=== PATIENT | female | born 1975 | race Caucasian/White ===

== ENCOUNTER 2018-11-10 14:38 | Emergency (ER) | payer MEDICARE, OTHER ==
--- NOTE | 2018-11-10 15:10 | ED PDOC ---
Arrival/HPI - General Historian: Patient - History of Present Illness Narrative History of Present Illness (Text): 11/10/18 14:58 43 y/o female, pmh including chronic back pain, nkda, last tetanus under 2 years ago, c/o syncope at home last night with head injury about 17 hours ago. Pt. stated that she woke up to go to the bathroom to urinate, sat down on the toilet, got up, felt dizzy and syncope on the floor, woke up with laceration to the back of the head, stated that she doesn't recall syncope, no change in vision, no numbness or tingling, no neck/back/extremity pain, no rash, no numbness or tingling, no other medical or psychological complaints. Past Medical History - Provider Review Nursing Documentation Reviewed: Yes Family/Social History - Physician Review Nursing Documentation Reviewed: Yes Family/Social History: Unknown Family HX Allergies/Home Meds Allergies/Adverse Reactions: Allergies No Known Allergies Allergy (Verified 11/10/18 15:45) Home Medications: Home Meds Medication Instructions Recorded Confirmed Cyclobenzaprine [Flexeril] 10 mg PO HS 11/10/18 11/10/18 Fluoxetine HCl [Prozac] 40 mg PO DAILY 11/10/18 11/10/18 Hydrocodone/Acetaminophen [Vicodin 1 tab PO BID PRN 11/10/18 11/10/18 5 mg-300 mg] Meloxicam [Mobic] 7.5 mg PO BID 11/10/18 11/10/18 Nortriptyline [Pamelor] 10 mg PO HS 11/10/18 11/10/18 Omeprazole 40 mg PO DAILY 11/10/18 11/10/18 Prazosin HCL [Minipress] 2 mg PO DAILY 11/10/18 11/10/18 Review of Systems - Review of Systems Constitutional: absent: Fatigue, Fevers Eyes: absent: Vision Changes ENT: absent: Hearing Changes Respiratory: absent: SOB, Cough Cardiovascular: absent: Chest Pain Gastrointestinal: absent: Abdominal Pain, Nausea, Vomiting Skin: Laceration. absent: Rash, Pruritis, Skin Lesions, Abscess, Ulcer, Cellulitis Neurological: Headache. absent: Dizziness Psychiatric: absent: Anxiety, Depression, Suicidal Ideation Physical Exam - Systems Exam Head: Present: Laceration (old healing wound posterior occipital laceration approx. 1cm with hematoma noted. ), Other (no facial swelling or tenderness). No: Abrasion Pupils: Present: PERRL Extroacular Muscles: Present: EOMI Conjunctiva: Present: Normal Ears: Present: NORMAL TM, Normal Canal. No: Erythema Mouth: Present: Moist Mucous Membranes Nose (Internal): Present: Normal Inspection, No Active Bleeding. No: Rhinorrhea Neck: Present: Normal Range of Motion Respiratory/Chest: Present: Clear to Auscultation, Good Air Exchange. No: Respiratory Distress, Accessory Muscle Use Cardiovascular: Present: Regular Rate and Rhythm, Normal S1, S2. No: Murmurs Abdomen: No: Tenderness, Distention, Peritoneal Signs, Rebound, Guarding Back: Present: Normal Inspection. No: CVA Tenderness, Midline Tenderness, Paraspinal Tenderness Upper Extremity: Present: Normal Inspection, Normal ROM, Neurovascularly Intact. No: Cyanosis, Edema, Deformity Lower Extremity: Present: Normal Inspection, Normal ROM, Capillary Refill < 2 s. No: Edema, Deformity Neurological: Present: GCS=15, CN II-XII Intact, Speech Normal, Motor Func Grossly Intact, Gait Normal, Memory Normal Skin: Present: Warm, Dry, Normal Color. No: Rashes Psychiatric: Present: Alert, Oriented x 3, Normal Insight, Normal Concentration Medical Decision Making ED Course and Treatment: 11/10/18 15:11 Vasovagal vs. ICH vs. hypotension vs. Cardiac arrythmia vs. UTI vs. Dehydration -Labs -Ekg -CXR -CT head -IVF/percocet -Observe and reassess 11/10/18 17:25 -Urine HCG is negative. -EKG: Sinus Bradycardia @ 57 BPM with sinus Arrythmia, no ST elevation or depression, no T wave inversion. -CT Head No acute intracranial pathology identified. -Chest xray ER wet read: no active disease -Labs show no acute findings -Trop is negative -CPK within normal limit -UA show no UTI -UDS show +cannabinoid -Orthostatic v/s within normal limit -I can not definitely explain the cause of her syncope, would recommend her to be admitted. 11/10/18 17:50 -Pt. refused to be admitted. I advised the patient to get up the bed slowly. -AMA ER The patient refuses to stay in the Emergency Room (ER) to continue the care and wishes to leave the emergency department against my medical advice. Patient was told that staying in the ER is necessary and a full explanation of the reasons why was given, and understood by the patient with alert and oriented x4. The risk of leaving were explained in laymans term and including but not limited to intracranial hemorrage, stroke, cardiac arrythmia, unknown cardiopulmonary and/or neurology disease, sepsis, , disability, pain, worsening of condition, permanent disability and from an undiagnosed or untreated condition. The patient accepts these risks, and is in my judgment is competent and capable of understanding the clinical situation and explanation of the risk of leaving. The patient is able to verbally repeated me back the above explained risks and benefits back to me, and verbally expressed understanding. Patient was given the opportunity to ask questions and change mind. The patient was instructed regarding the best care for the present symptoms, and to follow up as soon as possible with the primary care doctor including specialist or return to the emergency department at any time for continuing care. You sign out against medical advise. you are advised to be admitted but you declined. please follow up with your own pmd and neurologist/lead mobile developer as soon as possible, return to the ER for continuity of care. - RAD Interpretation Radiology Orders: CT head: Date of service: 11/10/2018 PROCEDURE: CT HEAD WITHOUT CONTRAST. HISTORY: syncope, posterior head injury COMPARISON: None available. TECHNIQUE: Axial computed tomography images were obtained through the head/brain without intravenous contrast. Radiation dose: Total exam DLP = 770.6 mGy-cm. This CT exam was performed using one or more of the following dose reduction techniques: Automated exposure control, adjustment of the mA and/or kV according to patient size, and/or use of iterative reconstruction technique. FINDINGS: HEMORRHAGE: No intracranial hemorrhage. BRAIN: No mass effect or edema. The li-white matter differentiation appears intact. VENTRICLES: No hydrocephalus. CALVARIUM: Unremarkable. PARANASAL SINUSES: Unremarkable as visualized. No significant inflammatory changes. MASTOID AIR CELLS: Unremarkable as visualized. No inflammatory changes. OTHER FINDINGS: None. IMPRESSION: No acute intracranial pathology identified. Chest xray: Lumber Press Operator: Radiologist - EKG Interpretation EKG Interpretation (Text): 11/10/18 15:41 Sinus Bradycardia @ 57 BPM with sinus Arrythmia, no ST elevation or depression, no T wave inversion. Interpreted by ED Physician: Yes Type: 12 lead EKG - PA / GENERAL MATCHER / Resident Statement MD/DO has reviewed & agrees with the documentation as recorded. Disposition/Present on Arrival - Present on Arrival Any Indicators Present on Arrival: No History of DVT/PE: No History of Uncontrolled Diabetes: No Urinary Catheter: No History of Decub. Ulcer: No - Disposition Have Diagnosis and Disposition been Completed?: Yes Diagnosis: Syncope and collapse, Scalp laceration, Noncompliance Disposition: AGAINST MEDICAL ADVICE Disposition Time: 17:50 Condition: GOOD Discharge Instructions (ExitCare): Syncope (ED) Additional Instructions: You sign out against medical advise. you are advised to be admitted but you declined. please follow up with your own pmd and neurologist/lead mobile developer as soon as possible, return to the ER for continuity of care. Prescriptions: Bacitracin Ointment [Bacitracin] 1 appful TOP BID #15 g Referrals: Roxy Dobbins MD [Staff Provider] - Follow up with primary Jess Angel MD [Staff Provider] - Follow up with primary [facility] [place] [Outside] - Follow up with primary Forms: WORK NOTE
[2018-11-10] MEDS ORDERED: Oxycodone/Acetaminophen 5/325 mg Tab PO STA (15:12)
[2018-11-10] MEDS ORDERED: Sodium Chloride 0.9% 1,000 ML IV SCH ×2 (15:15→15:42)
[2018-11-10 15:24] VITALS: BMI 26.6
[2018-11-10 15:26] VITALS: BP 125/70; PULSE 57; RESP 18; TEMP 98.2; O2SAT 98
[2018-11-10] MEDS ORDERED: Sodium Chloride 0.9% 1,000 ML IV STA (15:42)
[2018-11-10 16:15] LABS: PH,URINE 6.5 (4.7-8.0); URINE BILIRUBIN NEGATIVE (NEGATIVE); URINE BLOOD LARGE (NEGATIVE); URINE GLUCOSE (UA) NEGATIVE (NEGATIVE); URINE LEUKOCYTE ESTERASE NEGATIVE Leu/uL (NEGATIVE); URINE PROTEIN NEGATIVE mg/dL (<30 mg/dL); URINE UROBILINOGEN 0.2 E.U./dL (<1 E.U./dL)
[2018-11-10 16:16] LABS: URINE APPEARANCE CLEAR (CLEAR); URINE COLOR LIGHT YELLOW (YELLOW)
[2018-11-10 16:22] LABS: BASO # 0.02 K/mm3 (0.0-2.0); BASO % 0.3 % (0.0-3.0); EOS # 0.1 (0.0-0.7); EOS % 1.8 % (1.5-5.0); GRAN # 4.41 (1.4-6.5); GRAN % 55.7 % (50.0-68.0); HEMOGLOBIN 11.9 g/dL (12.0-16.0); LYMPH # 2.9 (1.2-3.4); LYMPH % 36.6 % (22.0-35.0); MEAN CELL VOLUME 89.1 fl (80.0-105.0); MEAN CORPUSCULAR HEMOGLOBIN 28.9 pg (25.0-35.0); MEAN CORPUSCULAR HGB CONC 32.4 g/dl (31.0-37.0); MEAN PLATELET VOLUME 10.8 fl (7.0-11.0); MONO # 0.4 (0.1-0.6); MONO % 5.6 % (1.0-6.0); RBC 4.12 10^6/uL (3.5-6.1); RED CELL DISTRIBUTION WIDTH 13.4 % (11.5-14.5); WHITE BLOOD COUNT 7.9 10^3/uL (4.5-11.0)
[2018-11-10 16:28] LABS: OPIATES, UR NEGATIVE (NEGATIVE)
[2018-11-10 16:29] LABS: URINE WBC NEGATIVE /hpf (0-6)
[2018-11-10 16:32] LABS: ALB/GLOB RATIO 1.4 (1.1-1.8); ALBUMIN 4.7 g/dL (3.0-4.8); ALT/SGPT 23 U/L (7-56); AST/SGOT 24 U/L (14-36); BLOOD UREA NITROGEN 10 mg/dL (7-21); CALCIUM 9.6 mg/dL (8.4-10.5); GFR NON-AFRICAN AMERICAN > 60
[2018-11-10 16:37] LABS: BARBITURATES, UR NEGATIVE (NEGATIVE); BENZODIAZEPINES, UR NEGATIVE (NEGATIVE); PHENCYCLIDINE, UR NEGATIVE (NEGATIVE)
[2018-11-10 16:43] LABS: TROPONIN I < 0.01 ng/mL
--- NOTE | 2018-11-10 17:13 | CT ---
Date of service: 11/10/2018 PROCEDURE: CT HEAD WITHOUT CONTRAST. HISTORY: syncope, posterior head injury COMPARISON: None available. TECHNIQUE: Axial computed tomography images were obtained through the head/brain without intravenous contrast. Radiation dose: Total exam DLP = 770.6 mGy-cm. This CT exam was performed using one or more of the following dose reduction techniques: Automated exposure control, adjustment of the mA and/or kV according to patient size, and/or use of iterative reconstruction technique. FINDINGS: HEMORRHAGE: No intracranial hemorrhage. BRAIN: No mass effect or edema. The li-white matter differentiation appears intact. VENTRICLES: No hydrocephalus. CALVARIUM: Unremarkable. PARANASAL SINUSES: Unremarkable as visualized. No significant inflammatory changes. MASTOID AIR CELLS: Unremarkable as visualized. No inflammatory changes. OTHER FINDINGS: None. IMPRESSION: No acute intracranial pathology identified.
--- NOTE | 2018-11-10 17:59 | RAD ---
Date of service: 11/10/2018 HISTORY: syncope COMPARISON: No prior. TECHNIQUE: Chest PA and lateral FINDINGS: LUNGS: No active pulmonary disease. PLEURA: No significant pleural effusion identified. No pneumothorax apparent. CARDIOVASCULAR: No aortic atherosclerotic calcification present. Normal cardiac size. No pulmonary vascular congestion. OSSEOUS STRUCTURES: No significant abnormalities. VISUALIZED UPPER ABDOMEN: Normal. OTHER FINDINGS: None. IMPRESSION: No active disease. Concordant results with the preliminary interpretation rendered by the emergency department physician procedure.
--- NOTE | 2018-11-11 10:40 | CARD ---
APPROVED REPORT Date of service: 11/10/2018 EKG Measurement Heart [id number] <Conclusion> Sinus bradycardia with sinus arrhythmia Otherwise normal ECG
== END 2018-11-10 18:02 | disposition left against medical advice (07) ==
LOC: ED 14:38
DX: S01.01XA Laceration without foreign body of scalp, initial encounter (principal); X58.XXXA Exposure to other specified factors, initial encounter
CPT/HCPCS: 70450; 71046; 80053; 80324; 80345; 80346; 80349; 80353; 80358; 80361; 81001; 82550; 83735; 83992; 84484; 85025; 93005; 96360; 99285; J7030